=== PATIENT | female | born 1945 ===

== ENCOUNTER 2018-02-20 10:39 | Emergency (ER) | payer MEDICARE, SELFPAY ==
[2018-02-20 10:51] VITALS: BMI 29.7
--- NOTE | 2018-02-20 11:18 | ED PDOC ---
HPI: Skin/Bite Injury History Per: Patient History/Exam Limitations: no limitations Location Of Injury: Left: Forearm <Venessa Goodman - Last Filed: 02/20/18 11:37> <Ricky Riley III - Last Filed: 02/20/18 12:10> Time Seen by Provider: 02/20/18 10:55 Chief Complaint (Nursing): Abnormal Skin Integrity Additional Complaint(s): 72 year old female here with complaints 5 day history of left forearm infection. She was seen in clinic on 02/14/18, no symptoms at that time. She attributes this to her visit to [place]. She has hx of labial abcess in the past. No history of DM. There are 2 lesions on her left forearm, she attempted to drain the more distal lesion without any success. There is some pain at the site of the lesions. No other lesions. She applied triple abx one time. No fevers or chills, no malaise. (Venessa Goodman) Supervising Attending Note <Venessa Goodman - Last Filed: 02/20/18 11:37> - Supervising Attending Note The documented procedures were done by the: Attending Physician - Attestation: I have personally seen and examined this patient.: Yes I have fully participated in the care of the patient.: Yes I have reviewed all pertinent clinical information, including history, physical exam and plan: Yes <Ricky Riley III - Last Filed: 02/20/18 12:10> - Notes: Notes:: Seen w resident, i examined patient and agree w findings. 72yo female nondiabetic with 2 faruncles to L forearm. Both lesions attempted aspiration after chlorhexidine scrub but no pustulence return. Rec warm compress, clinda, wound check 2-3 days. (Ricky Riley III) Past Medical History - Medical History PMH: HTN, Hypercholesterolemia, Osteoporosis - Family History Family History: States: Unknown Family Hx <Venessa Goodman - Last Filed: 02/20/18 11:37> <Ricky Riley III - Last Filed: 02/20/18 12:10> Vital Signs: Last Vital Signs Temp 98.4 F 02/20/18 11:47 Pulse 84 02/20/18 11:47 Resp 18 02/20/18 11:47 BP 173/92 H 02/20/18 11:47 Pulse Ox 98 02/20/18 12:04 - Home Medications Home Medications: Ambulatory Orders Medication Instructions Recorded Hydrochlorothiazide 25 mg PO DAILY 03/10/15 [Hydrochlorothiazide] Aspirin [Ecotrin] 81 mg PO DAILY 05/07/17 Atorvastatin [Lipitor] 20 mg PO HS 05/07/17 Ciprofloxacin [Cipro] 500 mg PO BID #6 tab 05/07/17 Valsartan [Diovan] 160 mg PO DAILY 05/07/17 Clindamycin [Cleocin] 300 mg PO Q6 40 Days cap 02/20/18 - Allergies Allergies/Adverse Reactions: Allergies Allergy/AdvReac Type Severity Reaction Status Date / Time Penicillins Allergy RASH Verified 05/07/17 17:06 Review of Systems Constitutional: Negative for: Fever, Chills, Sweats, Weakness Eyes: Negative for: Pain, Vision Change ENT: Negative for: Ear Pain, Ear Discharge, Nose Pain, Nose Discharge Cardiovascular: Negative for: Chest Pain, Palpitations, Orthopnea, Light Headedness Respiratory: Negative for: Cough, Shortness of Breath, Wheezing Gastrointestinal: Negative for: Nausea, Vomiting, Abdominal Pain, Diarrhea Genitourinary Female: Negative for: Dysuria Skin: Positive for: Lesions (2 erythematous furuncles left posterior forearm, no discharge) Neurological: Negative for: Weakness, Numbness, Altered Mental Status <Venessa Goodman - Doyle Filed: 02/20/18 11:37> Physical Exam - Physical Exam Appears: Positive for: Well, Non-toxic, No Acute Distress Head Exam: Positive for: ATRAUMATIC, NORMAL INSPECTION, NORMOCEPHALIC Skin: Positive for: Warm, Dry, Rash (2 lesions left posterior forearm- distal lesion larger with crusting in the center, proximal lesion: white pus visualized under skin, surrounding cellulitis) Eye Exam: Positive for: EOMI, Normal appearance, PERRL Neck: Positive for: Normal, Painless ROM Cardiovascular/Chest: Positive for: Regular Rate, Rhythm. Negative for: Bradycardia, Tachycardia Respiratory: Positive for: Normal Breath Sounds. Negative for: Rales, Rhonchi, Stridor, Wheezing Gastrointestinal/Abdominal: Positive for: Normal Exam, Soft Neurologic/Psych: Positive for: Alert, Oriented <Venessa Goodman - Last Filed: 02/20/18 11:37> - ECG O2 Sat by Pulse Oximetry: 98 <Venessa Goodman - Last Filed: 02/20/18 11:37> <Ricky Riley III - Last Filed: 02/20/18 12:10> - Progress ED Course And Treament: 72 year old female with furuncles of her left forearm. attempted to drain and culture, no discharge for culture obtained. Applied bacitracin, covered with gauze. Patient to continue to apply topical abx, apply warm compress TID. Take abx as prescribed. Return to ED Saturday for reeval. Patient seen and examined with Dr. Riley, who agrees with the assessment and plan delineated above. (Venessa Goodman) Disposition - Disposition Disposition Time: 11:35 <Venessa Goodman - Last Filed: 02/20/18 11:37> <Ricky Riley III - Last Filed: 02/20/18 12:10> - Clinical Impression Clinical Impression: Furuncle of forearm - Disposition Referrals: [facility] [Outside] Condition: FAIR Additional Instructions: Take antibiotics as directed. Keep area clean. Apply warm compress three times a day. Return to ED if symptoms are not improving in 2-3 days. Return to ED on Saturday for reevaluation. Prescriptions: Clindamycin [Cleocin] 300 mg PO Q6 40 Days cap Instructions: Boil (DC) Forms: [employer] (Pashto) Print Language: MALTESE
[2018-02-20 11:50] VITALS: BP 173/92; PULSE 84; RESP 18; TEMP 98.4
[2018-02-20 11:58] VITALS: O2SAT 98
== END 2018-02-20 11:35 | disposition home or self-care (01) ==
LOC: H.ER 10:39
DX: L02.423 Furuncle of right upper limb (principal); E78.00 Pure hypercholesterolemia, unspecified; I10 Essential (primary) hypertension; M81.0 Age-related osteoporosis without current pathological fracture; Z79.82 Long term (current) use of aspirin; Z88.0 Allergy status to penicillin